=== PATIENT | male | born 1970 | race Two or more races ===

== ENCOUNTER 2019-01-20 14:09 | Emergency (ER) | payer OTHER, BC ==
[~2019-01-20] VITALS: Ht 170.2 cm; Wt 97.1 kg
[2019-01-20 14:31] VITALS: BP 147/93
--- NOTE | 2019-01-20 15:39 | RAD ---
CT HEAD WO CONTRAST Date: 01/20/2019 2:53 PM Clinical Indication: Fall, head trauma Comparison: None. Technique: 5 mm axial tomographic images were obtained of the head without contrast. These were viewed on brain and bone windows. One or more of the following dose reduction techniques were utilized: Automated exposure control (AEC), Adjustment of mA and/or kV according to patient size, Use of iterative reconstruction technique such as ASiR, CT scan done according to ALARA and image gently/image wisely Findings: The brain parenchyma is normal in attenuation. No intra- or extra-axial mass or fluid collection. No acute hemorrhage. The ventricles are normal in size, shape, and morphology. The hunt-white matter junction is normal. The subarachnoid cisterns are patent. Mild ethmoid sinus mucosal thickening. The visualized portions of the orbits and globes are normal. The mastoid air cells are clear. The billing clerk topogram shows no lytic lesion or fracture. Impression: No acute intracranial process. Electronically signed by: Maxwell Iqbal MD (01/20/2019 3:36 PM) [id number]
--- NOTE | 2019-01-20 16:16 | PHYS DOC ---
Past Medical History Past Medical History: GERD, High Cholesterol Past Surgical History: No Surgical History Alcohol Use: None Drug Use: None Adult General Chief Complaint Chief Complaint: HEAD INJURY/TRAUMA [facility] HPI Patient is a 48 year old male who presents with 6 out of 10 posterior head pain after falling. Patient states he accidentally slipped at work and fell, he states he was seen at [facility], they evaluated him and discharged him back to work, he states he called the , the stated patient was disoriented and brought patient to the ED. Patient is alert and oriented �4 right now. Patient denies any loss of consciousness when he fell. Denies any neck pain. Review of Systems Review of Systems Constitutional: Denies fever or chills [] Eyes: Denies change in visual acuity, redness, or eye pain [] HENT: Denies nasal congestion or sore throat [] Respiratory: Denies cough or shortness of breath [] Cardiovascular: No additional information not addressed in HPI [] GI: Denies abdominal pain, nausea, vomiting, bloody stools or diarrhea [] : Denies dysuria or hematuria [] Musculoskeletal: Denies back pain or joint pain [] Integument: Denies rash or skin lesions [] Neurologic: Reports headache, reports disorientation, denies focal weakness or sensory changes [] All other systems were reviewed and found to be within normal limits, except as documented in this note. Allergies Allergies Allergies Coded Allergies Type Severity Reaction Last Updated Verified No Known Drug Allergies 01/20/19 No Physical Exam Physical Exam Constitutional: Well developed, well nourished, no acute distress, non-toxic ap pearance. [] HENT: Normocephalic, atraumatic, bilateral external ears normal, oropharynx moist, no oral exudates, nose normal. [] Eyes: PERRLA, EOMI, conjunctiva normal, no discharge. [] Neck: Normal range of motion, no tenderness, supple, no stridor. [] Cardiovascular:Heart rate regular rhythm, no murmur [] Lungs & Thorax: Bilateral breath sounds clear to auscultation [] Abdomen: Bowel sounds normal, soft, no tenderness, no masses, no pulsatile masses. [] Skin: Warm, dry, no erythema, no rash. [] Back: No tenderness, no CVA tenderness. [] Extremities: No tenderness, no cyanosis, no clubbing, ROM intact, no edema. [] Neurologic: Alert and oriented X 3, normal motor function, normal sensory function, no focal deficits noted. Cranial nerves II through XII intact Psychologic: Affect normal, judgement normal, mood normal. [] Current Patient Data Vital Signs Vital Signs Date Time Temp Pulse Resp B/P (MAP) Pulse Ox O2 Delivery O2 Flow Rate FiO2 01/20/19 14:31 98.8 96 16 147/93 (111) 95 Room Air 98.8 EKG EKG [] Radiology/Procedures Radiology/Procedures []PROCEDURE: CT HEAD WO CONTRAST CT HEAD WO CONTRAST Date: 01/20/2019 2:53 PM Clinical Indication: Fall, head trauma Comparison: None. Technique: 5 mm axial tomographic images were obtained of the head without contrast. These were viewed on brain and bone windows. One or more of the following dose reduction techniques were utilized: Automated exposure control (AEC), Adjustment of mA and/or kV according to patient size, Use of iterative reconstruction technique such as ASiR, CT scan done according to ALARA and image gently/image wisely Findings: The brain parenchyma is normal in attenuation. No intra- or extra-axial mass or fluid collection. No acute hemorrhage. The ventricles are normal in size, shape, and morphology. The hunt-white matter junction is normal. The subarachnoid cisterns are patent. Mild ethmoid sinus mucosal thickening. The visualized portions of the orbits and globes are normal. The mastoid air cells are clear. The associate medical director topogram shows no lytic lesion or fracture. Impression: No acute intracranial process. Electronically signed by: Ranjith Iqbal MD (01/20/2019 3:36 PM) [id number] DICTATED and SIGNED BY: RANJITH IQBAL MD DATE: 01/20/19 1536 Course & Med Decision Making Course & Med Decision Making Pertinent Labs and Imaging studies reviewed. (See chart for details) This is a 48-year-old male patient who presents to the ED today complaining of head injury, patient fell at work, was evaluated by [employer] and cleared to return to work. felt patient was disoriented and brought patient to the ED. Patient is alert and oriented �4. Does not loss of consciousness when he fell. CT of the head is negative. D/c patient back home. Provided return precautions and patient. F/u with PCP next week Nupur Disclaimer Nupur Disclaimer This electronic medical record was generated, in whole or in part, using a voice recognition dictation system. Departure Departure Impression: Primary Impression: Concussion Additional Impressions: Fall from standing Head injury Disposition: 01 HOME, SELF-CARE Condition: STABLE Referrals: MAHSA SHARPE (PCP) follow up in the course of this week Patient Instructions: Concussion and Brain Injury, Head Injury, Adult, [id number] Additional Instructions: You were evaluated in the emergency for a head injury with concussion symptoms. Your CT of the head is negative. Please take Tylenol as needed for pain. Please follow-up with your doctor in 1-2 weeks. Come back to the ED at any point symptoms worsen especially if you have any uncontrolled pain, uncontrolled osvaldo sea vomiting, excessive sleepiness, confusion, or any other new concerning symptoms. Problem Qualifiers Primary Impression: Concussion Encounter type: initial encounter Loss of consciousness presence/duration: without LOC Qualified Codes: S06.0X0A - Concussion without loss of consciousness, initial encounter Additional Impressions: Fall from standing Encounter type: initial encounter Qualified Codes: W19.XXXA - Unspecified fall, initial encounter Head injury Encounter type: initial encounter Qualified Codes: S09.90XA - Unspecified injury of head, initial encounter KYLE SUTHERLAND [employer]ESSAGE INSTRUCTOR Jan 20, 2019 16:16
== END 2019-01-20 16:28 | disposition home or self-care (01) ==
LOC: ER 14:09
DX: S06.0X0A Concussion without loss of consciousness, initial encounter (principal); K21.9 Gastro-esophageal reflux disease without esophagitis; E78.00 Pure hypercholesterolemia, unspecified; W01.0XXA Fall on same level from slipping, tripping and stumbling without subsequent striking against object, initial encounter; Y93.89 Activity, other specified; Y92.69 Other specified industrial and construction area as the place of occurrence of the external cause; Y99.0 Civilian activity done for income or pay
CPT/HCPCS: 70450; 99284-25